=== PATIENT | female | born 1955 ===

== ENCOUNTER 2018-11-27 15:20 | Outpatient (CLI) | payer MEDICARE | END 2018-11-27 15:21 | disposition home or self-care (01) | LOC: DI 15:20 | PROVIDERS: ATTEND Physician Assistant | DX: Z12.31 Encounter for screening mammogram for malignant neoplasm of breast (principal) | CPT/HCPCS: 77063; 77067 ==

== ENCOUNTER 2020-05-20 09:30 | Day surgery (SDC) | payer MEDICARE ==
[2020-05-20] MEDS ORDERED: LACTATED RINGERS 1,000 ML IV ONE (10:06)
[2020-05-20] MEDS ORDERED: fentaNYL 250 MCG/5 ML VIAL ONE (10:36)
[2020-05-20] MEDS ORDERED: MIDAZOLAM 2 MG/2 ML VIAL ONE ×3 (10:36→11:04)
[2020-05-20] MEDS ORDERED: LACTATED RINGERS 400 ML IV ONE (11:17)
[2020-05-20 11:52] VITALS: BP 102/66
== END 2020-05-20 09:31 | disposition home or self-care (01) ==
LOC: SDS 09:30
PROVIDERS: ATTEND Surgery
DX: Z12.11 Encounter for screening for malignant neoplasm of colon (principal); Z80.0 Family history of malignant neoplasm of digestive organs
CPT/HCPCS: G0105; J3010; J7120

== ENCOUNTER 2020-07-08 14:33 | Outpatient (CLI) | payer MEDICARE ==
--- NOTE | 2020-07-12 16:41 | Mammography Report ---
BILATERAL DIGITAL SCREENING MAMMOGRAM 3D/2D: 07/08/2020 CLINICAL: Routine screening. Comparison is made to exams dated: 11/27/2018 mammogram - [facility] and 07/10/2013 m ammogram - [facility]. There are scattered fibroglandular elements in both breasts. No significant masses, calcifications, or other findings are seen in either breast. There has been no significant interval change. IMPRESSION: NEGATIVE There is no mammographic evidence of malignancy. A 1 year screening mammogram is recommended. This exam was interpreted at Station ID: [id number]. NOTE: For mammograms, a report in lay terms will be sent to the patient. Approximately 15% of breast malignancies will not be visualized mammographically. In the management of a palpable breast mass, a negative mammogram must not discourage biopsy of a clinically suspicious lesion. Electronically Signed By: El Baugh M.D. ar/penrad:07/09/2020 11:13:11 ACR BI-RADS Category 1: Negative 3341F PARENCHYMAL PATTERN: (A) - The breast(s) demonstrate(s) scattered fibroglandular densities. BI-RADS CATEGORY: (1) - 1 RECOMMENDATION: (ANNUAL) - Recommend routine annual screening mammography. [id number] 1 year screening LATERALITY: (B)
== END 2020-07-08 14:34 | disposition home or self-care (01) ==
LOC: DI 14:33
PROVIDERS: ATTEND Registered Nurse
DX: Z12.31 Encounter for screening mammogram for malignant neoplasm of breast (principal)

== ENCOUNTER 2020-07-08 14:36 | Outpatient (CLI) | payer MEDICARE ==
--- NOTE | 2020-07-08 17:28 | DEXA Report ---
PROCEDURE: Dexa Spine and/or Hip INDICATIONS: POST MENOPAUSAL TECHNIQUE: Dual energy x-ray absorptiometry (DXA) was performed on a [employer] System. Regions measur ed are the AP Spine, femoral neck, and if needed forearm. COMPARISON: None. FINDINGS: Lumbar Spine: Bone Mineral Density 0.834 g/cm/cm,T score -2.9, osteoporosis Left Hip: Bone Mineral Density 0.863 g/cm/cm,T score -1.1, minimal osteopenia Left Femoral Neck: Bone Mineral Density 0.835 g/cm/cm, T score -1.5, mild osteopenia (T score greater or equal to -1.0: NORMAL) (T score from -1.1 to -2.4: OSTEOPENIA) (T score less than or equal to -2.5 to: OSTEOPOROSIS) Impression: Osteoporosis within the lumbar spine as well as minimal to mild osteopenia in the hip and femoral neck. Patients with diagnosis of osteoporosis or osteopenia should have regular bone mineral density assess ment. For those eligible for Medicare, routine testing is allowed once every 2 years. Testing frequ ency can be increased for patients who have rapidly progressing disease or for those who are receivin g medical therapy to restore bone mass. Reviewed by: Rafaela Lorenz MD on 07/08/2020 5:27 PM PST Approved by: Rafaela Lorenz MD on 07/08/2020 5:27 PM PST Station ID: [id number]
== END 2020-07-08 14:37 | disposition home or self-care (01) ==
LOC: DI 14:36
PROVIDERS: ATTEND Registered Nurse
DX: M81.0 Age-related osteoporosis without current pathological fracture (principal)

== ENCOUNTER 2023-05-17 11:54 | Outpatient (CLI) | payer MEDICARE ==
--- NOTE | 2023-05-18 10:19 | XRAY Report ---
PROCEDURE: Hip w/Pelvis 2-3V RT INDICATIONS: RIGHT HIP PAIN TECHNIQUE: AP pelvis with lateral view(s) of the right hip(s). COMPARISON: None. FINDINGS: Bones: No fractures or dislocations. No suspicious bony lesions. Severe osteoarthritic changes in r ight hip. Moderate left hip and bilateral sequela joint degeneration. Soft tissues: No suspicious soft tissue calcifications or masses. IMPRESSION: Severe osteoarthritis of the right hip. Reviewed by: Carlee Hogue MD on 05/18/2023 10:17 AM PST Approved by: Carlee Hogue MD on 05/18/2023 10:17 AM [facility] Station ID: [id number]
== END 2023-05-17 11:55 | disposition home or self-care (01) ==
LOC: DI.S 11:54
PROVIDERS: ATTEND Registered Nurse
DX: M16.11 Unilateral primary osteoarthritis, right hip (principal)

== ENCOUNTER 2023-05-23 10:50 | Outpatient (CLI) | payer MEDICARE ==
--- NOTE | 2023-05-24 08:24 | Mammography Report ---
BILATERAL DIGITAL SCREENING MAMMOGRAM 3D/2D: 05/23/2023 CLINICAL: Routine screening. Comparison is made to exams dated: 07/08/2020 mammogram, 11/27/2018 mammogram - [facility], and [facility] There are scattered areas of fibroglandular density in both breasts (category b / 25%-50% glandular t issue). No significant masses, calcifications, or other findings are seen in either breast. There has been no significant interval change. IMPRESSION: NEGATIVE There is no mammographic evidence of malignancy. A 1 year screening mammogram is recommended. Based on the Tyrer Cuzick model (a risk assessment model) the patients lifetime risk is 5.7% and her 10 year risk is 3.6%. According to the ACR, ACS, and NCCN guidelines, an annual breast MRI exam jadon g with mammogram is recommended if the patients lifetime risk is 20% or greater. This exam was interpreted at Station ID: [id number]. NOTE: For mammograms, a report in lay terms will be sent to the patient. Approximately 15% of breast malignancies will not be visualized mammographically. In the management of a palpable breast mass, a negative mammogram must not discourage biopsy of a clinically suspicious lesion. Electronically Signed By: Rosalva lee/vy:05/23/2023 17:34:42 letter sent: No_Letter ACR BI-RADS Category 1: Negative 3341F PARENCHYMAL PATTERN: (A) - The breast(s) demonstrate(s) scattered fibroglandular densities. BI-RADS CATEGORY: (1) - 1 Mammogram [id number] 1 year screening LATERALITY: (B)
== END 2023-05-23 10:51 | disposition home or self-care (01) ==
LOC: DI.S 10:50
PROVIDERS: ATTEND Registered Nurse
DX: Z12.31 Encounter for screening mammogram for malignant neoplasm of breast (principal); R92.323 Mammographic fibroglandular density, bilateral breasts

== ENCOUNTER 2023-09-20 12:53 | Outpatient (CLI) | payer MEDICARE ==
--- NOTE | 2023-09-21 12:39 | DEXA Report ---
PROCEDURE: Dexa Spine and/or Hip INDICATIONS: OSTEOPOROSIS TECHNIQUE: Dual energy x-ray absorptiometry (DEXA) was performed in the regions detailed below. COMPARISON: None. FINDINGS: Lumbar Spine: Bone Mineral Density 0.841 g/cm/cm,T score -2.8. Previously -2.9 Left Femoral Neck: Bone Mineral Density 0.782 g/cm/cm, T score -1.8, previously -1.5. Left Total Hip: Bone Mineral Density 0.810 g/cm/cm,T score -1.6. Previously -1.1 (T score greater or equal to -1.0: NORMAL) (T score from -1.1 to -2.4: OSTEOPENIA) (T score less than or equal to -2.5 to: OSTEOPOROSIS) IMPRESSION: Lumbar spine osteoporosis Patients with diagnosis of osteoporosis or osteopenia should have regular bone mineral density assess ment. For those eligible for Medicare, routine testing is allowed once every 2 years. Testing frequ ency can be increased for patients who have rapidly progressing disease or for those who are receivin g medical therapy to restore bone mass. Reviewed by: Lai Benson MD on 09/21/2023 11:38 AM [facility] Approved by: Lai Benson MD on 09/21/2023 11:38 AM [facility] Station ID: [id number]
== END 2023-09-20 12:54 | disposition home or self-care (01) ==
LOC: DI 12:53
PROVIDERS: ATTEND Registered Nurse
DX: M81.0 Age-related osteoporosis without current pathological fracture (principal)